=== PATIENT | female | born 1960 | race Caucasian/White ===

== ENCOUNTER 2017-06-29 15:13 | Outpatient (CLI) | payer BC | END 2017-06-29 15:14 | disposition home or self-care (01) | LOC: BICMAMMO 15:13 | PROVIDERS: ATTEND Family Medicine | DX: Z12.31 Encounter for screening mammogram for malignant neoplasm of breast (principal); R92.1 Mammographic calcification found on diagnostic imaging of breast | CPT/HCPCS: 77063; 77067 ==

== ENCOUNTER 2018-09-13 10:58 | Outpatient (CLI) | payer BC ==
--- NOTE | 2018-09-13 11:30 | MMO ---
Bilateral MAMMO Bilat Screen [facility]. CLINICAL HISTORY: Patient is 58 years old and is seen for screening. The patient has no family history of breast cancer. The patient has no personal history of cancer. VIEWS: The views performed were: bilateral craniocaudal with tomosynthesis; bilateral mediolateral oblique with tomosynthesis; and bilateral exaggerated craniocaudal. FILMS COMPARED: The present examination has been compared to prior imaging studies performed at [facility] on 03/06/2014, 03/27/2015, 05/26/2016, 05/27/2016 and 06/29/2017. MAMMOGRAM FINDINGS: The breasts are heterogeneously dense, which could obscure a lesion on mammography. There are no suspicious masses, suspicious calcifications, or new areas of architectural distortion. IMPRESSION: THERE IS NO MAMMOGRAPHIC EVIDENCE OF MALIGNANCY. A ROUTINE FOLLOW-UP MAMMOGRAM IN 1 YEAR IS RECOMMENDED. THE RESULTS OF THIS EXAM WERE SENT TO THE PATIENT. ACR BI-RADS Category 1 - Negative MAMMOGRAPHY NOTE: 1. A negative mammogram report should not delay a biopsy if a dominant of clinically suspicious mass is present. 2. Approximately 10% to 15% of breast cancers are not detected by mammography. 3. Adenosis and dense breasts may obscure an underlying neoplasm.
== END 2018-09-13 10:59 | disposition home or self-care (01) ==
LOC: BICMAMMO 10:58
PROVIDERS: ATTEND Family Medicine
DX: Z12.31 Encounter for screening mammogram for malignant neoplasm of breast (principal)
CPT/HCPCS: 77063; 77067

== ENCOUNTER 2020-02-12 22:24 | Observation (INO) | payer BC ==
[2020-02-12 23:34] LABS: ALT (SGPT) 13 U/L (8-55); AST (SGOT) 18 U/L (5-34); Alkaline Phosphatase 50 U/L (40-110); Anion Gap 12 mmol/L (10-20); BUN (Urea Nitrogen) 14 mg/dL (9.8-20.1); Bilirubin, Total 0.5 mg/dL (0.2-1.2); Calc. Creatinine Clearance 0 mL/min (70-130); Calcium 8.7 mg/dL (7.8-10.44); Carbon Dioxide 26 mmol/L (22-29); Chloride 100 mmol/L (98-107); Estimated GFR-MDRD 78; Globulin 2.4 g/dL (2.4-3.5); Glucose 93 mg/dL (70-105); Potassium 3.6 mmol/L (3.5-5.1); Protein, Total 6.4 g/dL (6.0-8.3); Sodium 134 mmol/L (136-145)
[2020-02-12 23:36] LABS: #Basophils 0.1 thou/uL (0.0-0.2); #Eosinphils 0.3 thou/uL (0.0-0.7); #Lymphocytes 2.3 thou/uL (1.20-3.40); #Monocytes 0.4 thou/uL (0.11-0.59); %Basophils 1.1 % (0.0-1.0); %Eosinophils 4.9 % (0.0-10.0); %Lymphocytes 38.1 % (21.0-51.0); %Monocytes 6.9 % (0.0-10.0); Hemoglobin 12.1 g/dL (12.0-16.0); Mean Corpuscular HGB CONC 34.6 g/dL (32.0-36.0); Mean Corpuscular Hemoglobin 33.4 pg (27.0-31.0); Mean Corpuscular Volume 96.3 fL (78.0-98.0); Mean Platelet Volume 7.1 fL (7.4-10.4); Platelet Count 212 thou/uL (130-400); Red Blood Cell (RBC) Count 3.64 mill/uL (4.20-5.40); White Blood Cell (WBC) Count 6.1 thou/uL (4.8-10.8)
[2020-02-13] MEDS ORDERED: Nitroglycerin 0.4 MG TAB (25 Tab Bottle) SL PRN (00:34)
--- NOTE | 2020-02-13 00:35 | PDOC.HHP ---
Hospitalist HPI - History of Present Illness Chest pain History of Present Illness: Transferred here from [facility]. She said that around 4 PM today when she is at work she developed chest pain. Is left-sided. It was off and on for about 2 hours. It then started rating to the jaw. She took nitro at the transferring facility and resolved. She has no history of any cardiac problems. No history of hypertension. Does not smoke. Drinks alcohol occasionally. No leg swelling. No cough hemoptysis. The chest pain is currently 1 or 2 out of 10. Its much improved from her initial pain. Hospitalist ROS - Review of Systems Constitutional: denies: fever, chills, sweats, weakness, malaise, other ENT: denies: ear pain, ear discharge, nose pain, nose discharge, nose congestion, mouth pain, mouth swelling, throat pain, throat swelling, other Respiratory: denies: cough, dry, shortness of breath, hemoptysis, SOB with excertion, pleuritic pain, sputum, wheezing, other Cardiovascular: reports: chest pain. denies: palpitations, orthopnea, paroxysmal noc. dyspnea, edema, light headedness, other Gastrointestinal: denies: nausea, vomiting, abdominal pain, diarrhea, constipation, melena, hematochezia, other Genitourinary: denies: dysuria, frequency, incontinence, hematuria, retention, other Musculoskeletal: denies: neck pain, shoulder pain, arm pain, back pain, hand pain, leg pain, foot pain, other Skin: denies: rash, lesions, letty, bruising, other Neurological: denies: weakness, numbness, incoordination, change in speech, confusion, seizures, other All other systems reviewed; all pertinent +/- noted in HPI/Subj - Medication Medications: sertraline MonFeb 12, 2020 22:33 ELIS Madrigal Joshua TABLET : Strength - 25 mg : ORAL Patient Dose: 25 mg Oral once a day. levothyroxine oral MonFeb 12, 2020 22:36 ELIS Madrigal Joshua tablet : Strength - 125 mcg : ORAL Patient Dose: 125 mcg once a day. traZODone MonFeb 12, 2020 22:37 ELIS Madrigal Joshua tablet : Strength - 50 mg : ORAL Patient Dose: 50 mg.PRN SLEEP. Hospitalist History - Past Medical History Other Medical History: hypothyroid, depression - Past Surgical History Past Surgical History: reports: Hysterectomy - Family History Family History: reports: no pertinent history - Social History Alcohol: reports: Occassional Drugs: reports: none - Exam General Appearance: NAD, awake alert Eye: PERRL, anicteric sclera ENT: normocephalic atraumatic, no oropharyngeal lesions, moist mucosa Neck: supple, symmetric, no JVD, no thyromegaly, no lymphadenopathy, no carotid bruit Heart: RRR, no murmur, no gallops, no rubs, normal peripheral pulses Respiratory: CTAB, no wheezes, no rales, no ronchi, normal chest expansion, no t achypnea, normal percussion Gastrointestinal: soft, non-tender, non-distended, normal bowel sounds, no palpable masses, no hepatomegaly, no splenomegaly, no bruit Extremities: no cyanosis, no clubbing, no edema Skin: normal turgor, no lesions, no rashes Neurological: cranial nerve grossly intact, normal sensation to touch, no weakness, no focal deficits, no new deficit Musculoskeletal: normal tone, normal strength, no muscle wasting Psychiatric: normal affect, normal behavior, A&O x 3 Hospitalist Results - Labs Result Diagrams: 02/12/20 23:00 02/12/20 23:00 Lab results: WBC 6.1 thou/uL (4.8-10.8) 02/12/20 23:00 Hgb 12.1 g/dL (12.0-16.0) 02/12/20 23:00 Hct 35.0 % (36.0-47.0) L 02/12/20 23:00 MCV 96.3 fL (78.0-98.0) 02/12/20 23:00 Plt Count 212 thou/uL (130-400) 02/12/20 23:00 Neutrophils % 49.0 % (42.0-75.0) 02/12/20 23:00 Sodium 134 mmol/L (136-145) L 02/12/20 23:00 Potassium 3.6 mmol/L (3.5-5.1) 02/12/20 23:00 Chloride 100 mmol/L (98-107) 02/12/20 23:00 Carbon Dioxide 26 mmol/L (22-29) 02/12/20 23:00 BUN 14 mg/dL (9.8-20.1) 02/12/20 23:00 Creatinine 0.76 mg/dL (0.6-1.1) 02/12/20 23:00 Glucose 93 mg/dL (70-105) 02/12/20 23:00 Calcium 8.7 mg/dL (7.8-10.44) 02/12/20 23:00 Total Bilirubin 0.5 mg/dL (0.2-1.2) 02/12/20 23:00 AST 18 U/L (5-34) 02/12/20 23:00 ALT 13 U/L (8-55) 02/12/20 23:00 Alkaline Phosphatase 50 U/L (40-110) 02/12/20 23:00 Troponin I Less than 0.010 ng/mL (< 0.028) 02/12/20 23:00 Serum Total Protein 6.4 g/dL (6.0-8.3) 02/12/20 23:00 Albumin 4.0 g/dL (3.5-5.0) 02/12/20 23:00 Additional comment: VITAL SIGNS Wed Feb 12, 2020 22:28 ELIS Madrigal, Ronald BP: 134/83 Pulse: 60 Resp: 18 Temp: 98.3 (Oral) Pain: 2 O2 sat: 98 on (Room Air) Time: 02/12/2020 22:28. - EKG Interpretation EKG: sinus bradycardia [address] elevations of acuity Hospitalist H&P A/P - Plan Plan: # chest pain # history of depression, low thyroid # sinus bradycardia - admit to telemetry - asa, stress test, trend troponin - consider cardiology consult
[2020-02-13 00:45] VITALS: BMI 29.5
[2020-02-13] MEDS ORDERED: Aspirin 325 MG TAB PO SCH (00:45)
[2020-02-13] MEDS ORDERED: traZODone HCl 50 MG TAB PO PRN (00:56)
[2020-02-13] MEDS ORDERED: ALPRAZolam 0.5 MG TAB PO PRN (00:56)
[2020-02-13] MEDS: Acetaminophen 325 MG TAB PO PRN ×3 (07:04→23:23)
[2020-02-13] MEDS ORDERED: ADENOSINE 60 MG/20 ML VIAL ONE (08:32)
[2020-02-13] MEDS ORDERED: Sodium Chloride 0.9% 10 ML ONE (08:41)
[2020-02-13] MEDS ORDERED: Metoprolol Tartrate 25 MG TAB PO SCH (09:00)
[2020-02-13] MEDS ORDERED: Non-Formulary Item 1 EACH (Sertraline Hcl [Sertraline Hcl] 50 MG Tablet) PO SCH (09:00)
[2020-02-13 09:07] LABS: Troponin I Less than 0.010 ng/mL (< 0.028)
[2020-02-13] MEDS: Enoxaparin Sodium 40 MG/0.4 ML SYRINGE SC SCH ×2 (11:09→11:12)
[2020-02-13] MEDS: Aspirin 325 mg Enteric Coated Tablet PO SCH (11:10)
--- NOTE | 2020-02-13 11:37 | NM ---
CARDIAC SPECT: CLINICAL HISTORY: 59-year-old female with chest pain. TECHNIQUE: A myocardial perfusion scan was performed using the single isotope one day protocol with technetium-9 9m sestamibi. 10 mCi were injected intravenously for the rest exam followed by 31 mCi for the stress exam. Pharmacologic stress with Adenosine was monitored and interpreted by Debra Akins NP. FINDINGS: Homogeneous tracer distribution is seen in the myocardial segments on stress and rest images without fixed or reversible defects. The left ventricular cavity appears more prominent on stress compared to rest with a TID ratio of 1.55. GATED SPECT LVEF: 66%. WALL MOTION EXAM: Normal. IMPRESSION: TID ratio is 1.55. POS: AH
--- NOTE | 2020-02-13 16:07 | PDOC.HOSPP ---
- Subjective Encounter Date: 02/13/20 Encounter Time: 15:30 Subjective: Patient up in bed no complaints of chest pain. - Objective Vital Signs & Weight: Vital Signs (12 hours) Temp Pulse Resp BP BP Pulse Ox 02/13/20 14:58 97.6 F 68 16 140/80 98 02/13/20 12:16 98.4 F 75 18 122/74 97 02/13/20 08:00 97.8 F 67 16 126/68 95 02/13/20 07:36 97.8 F 67 16 126/68 95 Weight Weight 151 lb 1.6 oz I&O: 02/12/20 02/13/20 02/14/20 06:59 06:59 06:59 Intake Total 240 Output Total 900 800 Balance -660 -800 Result Diagrams: 02/12/20 23:00 02/12/20 23:00 Hospitalist ROS - Review of Systems Cardiovascular: denies: chest pain, palpitations, orthopnea, paroxysmal noc. dyspnea, edema, light headedness, other Gastrointestinal: denies: nausea, vomiting, abdominal pain, diarrhea, constipation, melena, hematochezia, other Genitourinary: denies: dysuria, frequency, incontinence, hematuria, retention, other - Medication Medications: Active Medications Generic Name Dose Route Start Last Admin Trade Name Freq PRN Reason Stop Dose Admin Acetaminophen 650 mg 02/13/20 00:57 02/13/20 11:15 Acetaminophen 325 Mg Tab PO 650 mg Q4H PRN Administration Headache/Fever or Pain Aspirin 325 mg 02/13/20 09:00 02/13/20 11:10 Aspirin 325 Mg Enteric Coated Tablet PO 325 mg DAILY NORMA Administration Aspirin 325 mg 02/13/20 00:45 02/13/20 00:47 Aspirin 325 Mg Tab PO 02/13/20 03:00 Not Given NOW NORMA Enoxaparin Sodium 40 mg 02/13/20 09:00 02/13/20 11:12 Enoxaparin Sodium 40 Mg/0.4 Ml Syringe SC Not Given 09 NORMA Sertraline HCl 25 mg 02/13/20 09:00 02/13/20 11:09 Sertraline Hcl 25 Mg Tab PO 25 mg DAILY NORMA Administration Thyroid 90 mg 02/13/20 09:00 02/13/20 11:09 Thyroid 90 Mg Tab PO 90 mg DAILY NORMA Administration - Exam Neck: negative: supple, symmetric, no JVD, no thyromegaly, no lymphadenopathy, no carotid bruit, JVD Heart: negative: RRR, no murmur, no gallops, no rubs, normal peripheral pulses, irregular, diminshed peripheral pulses, murmur present, II/IV, III/IV Respiratory: negative: CTAB, no wheezes, no rales, no ronchi, normal chest expansion, no tachypnea, normal percussion, rales, rhonchi, tachypneic, wheezes Gastrointestinal: negative: soft, non-tender, non-distended, normal bowel sounds, no palpable masses, no hepatomegaly, no splenomegaly, no bruit, no guarding, no rigidity, tender to palpation, distended, diminished bowl sounds, voluntary guarding Hosp A/P (1) Chest pain Code(s): R07.9 - CHEST PAIN, UNSPECIFIED Status: Acute (2) Hypothyroid Code(s): E03.9 - HYPOTHYROIDISM, UNSPECIFIED Status: Acute (3) Depression Code(s): F32.9 - MAJOR DEPRESSIVE DISORDER, SINGLE EPISODE, UNSPECIFIED Status: Acute - Plan Patient's troponin x3 were negative. She has been under a lot of stress recently. Patient stress test indicated a 3 times daily ratio of 1.55
[2020-02-13] MEDS ORDERED: Communication Order-Pharmacy FS SCH (19:30)
[2020-02-13] MEDS ORDERED: Atorvastatin Calcium 40 MG TAB PO SCH (21:00)
--- NOTE | 2020-02-13 23:32 | CON ---
DATE OF CONSULTATION: HISTORY: Ada Fernandez is a 59-year-old white female without any previous cardiac problems or chest discomfort. She was sitting at her desk at work yesterday and had onset of a pressure in her chest, that somewhat radiated to her neck. There may have been a mild pleuritic component to her pain. Her blood pressure, when she went home was 170/100, but she usually does not have high blood pressure. She then decided to go to the emergency room in [place], was given sublingual nitroglycerin, and her blood pressure came down, and her chest discomfort seemed to resolve. She was having multiple episodes of chest discomfort, it seemed to last 1 to 2 minutes each. She then was transferred here for further evaluation. She underwent adenosine Cardiolite testing, which revealed no evidence of fixed or reversible defects. However, she did have a TID of 1.55. Ejection fraction was 66% with normal wall motion. PAST MEDICAL HISTORY: She denies any history of hypercholesterolemia; however, in 2012, LDL was 136. She denies any history of hypertension or diabetes. She does have hypothyroidism as well as depression after the loss of her father 1 to 2 years ago. OPERATIONS: Hysterectomy. MEDICATIONS: 1. Alprazolam 0.5 mg t.i.d. p.r.n. 2. Sertraline 25 mg daily. 3. [place] Thyroid 90 mg daily. 4. Trazodone 100 mg at bedtime. ALLERGIES: NONE. SOCIAL HISTORY: She does not smoke or drink. FAMILY HISTORY: Father had myocardial infarction and bypass surgery in his late 70s. SYSTEM REVIEW: 10-point review of systems are unremarkable. PHYSICAL EXAMINATION: VITAL SIGNS: Blood pressure 140/80, pulse of 68. HEENT: PERRL. NECK: Supple. CHEST: Clear. CARDIAC: S1 and S2 are normal without any S3, S4, or murmurs. Carotid upstrokes are normal without bruits. ABDOMEN: Normal bowel sounds without tenderness or organomegaly. EXTREMITIES: Revealed no clubbing, cyanosis, or edema. NEUROLOGIC: Grossly intact. SKIN: Warm and dry. LABORATORY DATA: EKG revealed sinus bradycardia, but otherwise, this was unremarkable. Hemoglobin 12.1, hematocrit 35.0, white count 6100, platelets 212,000. Sodium 134, potassium 3.6, chloride 100, carbon dioxide 26, BUN 14, creatinine 0.76. Liver function tests normal. Troponin I's were all normal. IMPRESSION: 1. Somewhat atypical chest discomfort and normal Cardiolite scan with the exception of elevated TID of 1.55. 2. Hypercholesterolemia with LDL of 136 in 2012. 3. Positive family history. 4. Depression and anxiety. 5. Hypothyroidism. PLAN: Lipid profile and TSH will be obtained. With transient ischemic dilatation, it is recommended that she undergo cardiac catheterization. Risks of this were discussed the patient including , myocardial infarction, dye reaction, vascular injury, CVA, transfusion, limb loss, renal loss, etc. Risks of intervention with PTCA and stent placement were discussed including , myocardial infarction, emergent CABG, restenosis, stent thrombosis, vessel perforation, etc. She has never had gastrointestinal bleeding or stroke. She does not have any upcoming surgical procedures and it was recommended that a drug-eluting stent be placed if needed. Job ID: [id number] [id number]
[2020-02-14 05:12] LABS: Cardiac Risk 3.4 (Less than 4.5)
[2020-02-14] MEDS ORDERED: Sodium Chloride 0.9% 1,000 ML IV SCH ×2 (06:00→07:45)
[2020-02-14] MEDS: Aspirin 325 mg Enteric Coated Tablet PO SCH (06:04)
[2020-02-14] MEDS ORDERED: Heparin 10,000 UNITS/ 10 ML VIAL ONE ×2 (06:36→07:21)
[2020-02-14] MEDS ORDERED: Lidocaine 1% (PF) 30 ML VIAL ONE (06:36)
[2020-02-14] MEDS ORDERED: Fentanyl 100 MCG/2 ML VIAL ONE (07:09)
[2020-02-14] MEDS ORDERED: Midazolam HCl 2 mg/2 ml Vial ONE (07:09)
[2020-02-14] MEDS ORDERED: Protamine Sulfate 50 MG/5 ML VIAL ONE (07:28)
[2020-02-14] MEDS ORDERED: Acetaminophen/Codeine 30-300mg Tablet PO PRN ×2 (07:37)
[2020-02-14] MEDS ORDERED: Sodium Chloride 0.9% 200 ML IV PRN (07:37)
[2020-02-14] MEDS ORDERED: Nitroglycerin 0.4 MG TAB (25 Tab Bottle) SL PRN (07:37)
[2020-02-14] MEDS: Acetaminophen 325 MG TAB PO PRN (08:22)
[2020-02-14] MEDS ORDERED: Iopamidol 370 76% 100 ML VIAL ONE (09:10)
[2020-02-14] MEDS ORDERED: Lidocaine 2% Viscous Solution 10 ML, Aluminum & Magnesium Hydroxide 30 ML SSW SCH (14:00)
[2020-02-14] MEDS ORDERED: Ketorolac Tromethamine 30 MG/ML VIAL IVP SCH (15:00)
[2020-02-14 15:16] VITALS: BP 148/85; TEMP 98.6
[2020-02-14] MEDS ORDERED: Atorvastatin Calcium 20 MG TAB PO SCH (21:00)
--- NOTE | 2020-02-15 02:14 | DIS ---
DATE OF ADMISSION: 02/12/2020 DATE OF DISCHARGE: 02/14/2020 DISCHARGE DIAGNOSES: 1. Chest pain. 2. Hypercholesterolemia. 3. Hypothyroidism. HOSPITAL COURSE: The patient is a 59-year-old female, who initially presented to the hospital for chest pain. Troponins x3 were negative. She underwent a stress test, which indicated a TID ratio of 1.55 at this time. Cardiology was consulted. The patient underwent a catheterization, which indicated normal coronaries. At this time, the patient was discharged home. She also had a D-dimer checked, which was normal. The patient was given some Toradol which improved her pain. HOME MEDICATIONS: As of the followin. Trazodone 100 mg at bedtime p.r.n. 2. Alprazolam 0.5 t.i.d. p.r.n. 3. Thyroid 90 mg p.o. daily. 4. Sertraline 25 mg daily. 5. Atorvastatin 20 mg at bedtime. I have told her that she can diet, exercise, and weight loss and see if that helps with her cholesterol and to be re-checked in 3 months. If she wants to take her medications, she can, it is available. However, the patient opted for diet, exercise, and weight loss. PHYSICAL EXAMINATION: VITAL SIGNS: On discharge, temperature 98.6, pulse 71, respirations 18, and oxygen saturation 97% on room air, blood pressure 148/85. GENERAL: She is awake, alert, and oriented x3. Does not appear in distress. CVS: S1, S2 present. No murmurs, rubs, or gallops. Job ID: [id number]
== END 2020-02-14 16:51 | disposition home or self-care (01) ==
LOC: ERS 22:24 → 2SW 23:27
PROVIDERS: ADMIT Internal Medicine; ATTEND Internal Medicine
PROC: 4A023N7 Measurement of Cardiac Sampling and Pressure, Left Heart, Percutaneous Approach (ICD-10-PCS; principal; 2020-02-14)
PROC: B2111ZZ Fluoroscopy of Multiple Coronary Arteries using Low Osmolar Contrast (ICD-10-PCS; 2020-02-14)
DX: R07.89 Other chest pain (principal); R00.1 Bradycardia, unspecified; E78.00 Pure hypercholesterolemia, unspecified; E03.9 Hypothyroidism, unspecified; F32.9 Major depressive disorder, single episode, unspecified; F41.9 Anxiety disorder, unspecified; Z82.49 Family history of ischemic heart disease and other diseases of the circulatory system; Z79.899 Other long term (current) drug therapy
CPT/HCPCS: 36415; 78452; 80061; 84443; 84484; 85347; 85379; 93005; 93017; 93458; 96361; 96374; 99152; A9500; G0378; J0153; J1644; J1650; J1885; J2001; J2250; J2720; J3010; Q9967

== ENCOUNTER 2022-01-25 14:54 | Outpatient (CLI) | payer BC | END 2022-01-25 14:55 | disposition home or self-care (01) | LOC: BICMAMMO 14:54 | PROVIDERS: ATTEND Family Medicine | DX: Z12.31 Encounter for screening mammogram for malignant neoplasm of breast (principal); R92.1 Mammographic calcification found on diagnostic imaging of breast | CPT/HCPCS: 77063; 77067 ==

== ENCOUNTER 2022-01-27 14:22 | Outpatient (CLI) | payer BC | END 2022-01-27 14:23 | disposition home or self-care (01) | LOC: BICMAMMO 14:22 | PROVIDERS: ATTEND Family Medicine | DX: R92.8 Other abnormal and inconclusive findings on diagnostic imaging of breast (principal) | CPT/HCPCS: G0279 ==

== ENCOUNTER 2022-04-27 09:44 | Day surgery (SDC) | payer BC ==
[2022-04-26 10:35] VITALS: BMI 29.2
[2022-04-27] MEDS ORDERED: Bupivacaine/Epinephrine 0.25% 30 ML VIAL ONE (10:44)
[2022-04-27] MEDS ORDERED: Lidocaine 2% PF 5 ML VIAL ONE (10:44)
[2022-04-27] MEDS ORDERED: Midazolam HCl 2 mg/2 ml Vial ONE (11:55)
[2022-04-27] MEDS ORDERED: Fentanyl 250 MCG/5 ML VIAL ONE (11:55)
[2022-04-27] MEDS ORDERED: Propofol 500 MG/50 ML VIAL ONE (11:55)
[2022-04-27] MEDS ORDERED: CEFAZOLIN 2 GM VIAL ONE (11:57)
[2022-04-27] MEDS ORDERED: Sodium Chloride 0.9% 100 ML ONE (11:58)
[2022-04-27] MEDS ORDERED: Ketorolac Tromethamine 30 MG/ML VIAL ONE (12:05)
[2022-04-27] MEDS ORDERED: Lidocaine 1% PF 5 ML VIAL ONE (12:05)
[2022-04-27] MEDS ORDERED: Esmolol 100 MG/10 ML VIAL ONE (12:05)
[2022-04-27] MEDS ORDERED: Ondansetron PF 4 MG/2 ML Vial ONE (12:05)
[2022-04-27] MEDS ORDERED: PROPOFOL 200 MG/20 ML VIAL ONE (12:05)
[2022-04-27] MEDS ORDERED: Dexamethasone 20 MG/5 ML VIAL ONE (12:05)
[2022-04-27] MEDS ORDERED: HYDROmorphone 2 MG/ML VIAL SLOW IVP PRN (13:00)
[2022-04-27] MEDS ORDERED: Promethazine HCl 25 MG/ML VIAL IVPB PRN (13:00)
[2022-04-27] MEDS ORDERED: Meperidine HCl/PF 25 MG/ML VIAL SLOW IVP PRN (13:00)
[2022-04-27] MEDS ORDERED: Fentanyl 100 MCG/2 ML VIAL ONE (13:08)
== END 2022-04-27 15:05 | disposition home or self-care (01) ==
LOC: SDC 09:44
PROVIDERS: ATTEND Surgery
PROC: 0HBT0ZZ Excision of Right Breast, Open Approach (ICD-10-PCS; principal; 2022-04-27)
DX: D05.11 Intraductal carcinoma in situ of right breast (principal); N60.91 Unspecified benign mammary dysplasia of right breast; Z79.82 Long term (current) use of aspirin; Z79.890 Hormone replacement therapy
CPT/HCPCS: 88307; J1100; J1885; J2001; J2250; J2405; J2704; J3010; J3490

== ENCOUNTER 2024-02-20 08:43 | Outpatient (CLI) | payer BC | END 2024-02-20 08:44 | disposition home or self-care (01) | LOC: BICMAMMO 08:43 | PROVIDERS: ATTEND Surgery | DX: Z86.000 Personal history of in-situ neoplasm of breast (principal) | CPT/HCPCS: 77066; G0279 ==

== ENCOUNTER 2024-03-07 10:50 | Outpatient (CLI) | payer BC | END 2024-03-07 10:51 | disposition home or self-care (01) | LOC: BICULT 10:50 | PROVIDERS: ATTEND Internal Medicine Hematology & Oncology | DX: M79.621 Pain in right upper arm (principal); D05.11 Intraductal carcinoma in situ of right breast; N64.4 Mastodynia ==